=== PATIENT | male | born 1965 | race Caucasian/White ===

== ENCOUNTER → 2020-03-06 | Outpatient (CLI) | payer OTHER ==
[~2020-03-06] MED LIST: ALBU90OI INH; PRED20 PO; TIOT18 INH
== END ==
LOC: LAB EV 17:27 → LAB SHORT 17:27
DX: S21.201A Unspecified open wound of right back wall of thorax without penetration into thoracic cavity, initial encounter (principal)
CPT/HCPCS: 87070; 87077; 87147; 87186; 87205

== ENCOUNTER 2022-01-03 05:54 | Day surgery (SDC) | payer BC ==
[~2022-01-03] VITALS: Ht 170.2 cm; Wt 57.3 kg
[2022-01-03] MEDS ORDERED: AFRIN15 M6 (06:36)
--- NOTE | 2022-01-03 07:17 | NUR ---
Ambulatory in Day Surgery History, Chart, Medications and Allergies reviewed before start of procedure.Lungs clear T/O to Auscultation. Patient confirms NPO status and agrees with scheduled surgery. Pre-Op teaching done. Pt verbalizes understanding.
--- NOTE | 2022-01-03 09:58 | NUR ---
Discharge instructions reviewed with patient. Patient verbalizes understanding. Copy given to patient to take home. DRG C/D/I, ICE WAS ON FOR 20MIN. PT READY FOR DC HOME, DRESSED. Discharged via wheelchair to private car for ride home. RX GIVEN TO PT TO TAKE TO [facility].
--- NOTE | 2022-01-04 07:49 | NUR ---
01/04/22 0749 Ladi Galvan VERIFICATIONS: EDIT CHART.
== END 2022-01-03 09:55 | disposition home or self-care (01) ==
LOC: ORSCMMR 05:54 → ORD 07:30 → ORSCMMR 09:55
PROVIDERS: Surgery
PROC: 0YU60JZ Supplement Left Inguinal Region with Synthetic Substitute, Open Approach (ICD-10-PCS; principal; 2022-01-03 07:30)
DX: K40.90 Unilateral inguinal hernia, without obstruction or gangrene, not specified as recurrent (principal); J45.909 Unspecified asthma, uncomplicated; F17.210 Nicotine dependence, cigarettes, uncomplicated; Z79.899 Other long term (current) drug therapy
CPT/HCPCS: A9270; C1781; J0690; J1100; J1885; J2250; J2370; J2405; J2704; J2795; J3010; J7120

== ENCOUNTER 2022-11-27 20:25 | Emergency (ER) | payer BC ==
[~2022-11-27] VITALS: Ht 170.2 cm; Wt 56.7 kg
[~2022-11-27 20:25] MED LIST changes: +AFRIN15 M6
[2022-11-27 20:35] VITALS: BP 144/87
== END 2022-11-27 22:30 | disposition home or self-care (01) ==
LOC: ER 20:25
DX: S81.011A Laceration without foreign body, right knee, initial encounter (principal); F17.200 Nicotine dependence, unspecified, uncomplicated; W27.2XXA Contact with scissors, initial encounter; J44.9 Chronic obstructive pulmonary disease, unspecified
CPT/HCPCS: 12001; 90471; 90714; 99282-25